=== PATIENT | male | born 1950 | race Caucasian/White ===

== ENCOUNTER 2017-01-05 08:27 | Outpatient (CLI) | payer MEDICARE, BC ==
--- NOTE | ~2017-01-05 | OP ---
PATIENT NAME: ESTELLA HAMPTON MEDICAL RECORD: [id number] :50 LOCATION:D.CAT ADMISSION DATE: SURGEON: YULIYA MALONE MD DATE OF OPERATION: 01/05/2017 PROCEDURES: 1. Left heart catheterization. 2. Selective coronary angiography. 3. Left ventriculogram. INDICATION: Chest pain compatible with angina. PROCEDURE IN DETAIL: After informed consent was obtained and after detailed explanation of risks, benefits as well as alternative therapies, the patient elected to proceed with angiogram and heart catheterization. The right femoral area was prepped and draped in normal sterile fashion. The right femoral artery was cannulated via modified Seldinger technique with placement of 6-Tanzanian sheath. All catheters exchanged through this sheath. FINDINGS: The left ventriculogram was performed in the standard 30-degree INGRAM view, reveals good cardiac wall motion throughout all segments. Overall ejection fraction is 50%. SELECTIVE CORONARY ANGIOGRAPHY: Left main, left anterior descending, left circumflex, and right coronary artery are all smooth-walled vessels with no angiographic evidence of coronary artery disease. OVERALL IMPRESSION: 1. No angiographic evidence of coronary artery disease. 2. Normal left heart pressures. 3. Normal left ventricular systolic function. Chest pain is most likely gastroesophageal reflux disease. No further cardiac workup needs to be ascertained. TRANSINT:[id number] Voice Confirmation ID: [id number] DOCUMENT ID: [id number] YULIYA MALONE MD CC: [id number] DICTATION DATE: 01/05/17 1302 [employer] ESTATE ASSET MANAGER: 01/05/171917 DEP CLI 01/05/17 [facility] [address] [id number]
--- NOTE | ~2017-01-05 | CN ---
PATIENT NAME:ESTELLA RAO MEDICAL RECORD: [id number] : 50 LOCATION:D.CAT ADMIT DATE: ACCOUNT: [id number] CONSULTING PHYSICIAN: YULIYA MALONE MD REFERRING PHYSICIAN: YULIYA MALONE MD DATE OF CONSULTATION: 01/05/2017 ADMITTING DIAGNOSES: 1. Chest pain compatible with angina. 2. Hypertension. 3. Hyperlipidemia. 4. Family history of coronary artery disease. HISTORY OF PRESENT ILLNESS: Mr. Rao presents with chest discomfort lasted approximately 2 hours, a classic anginal squeezing sensation across the anterior left chest. His EKG is with no acute ST-T abnormalities. He is pain free at this time. He has some more episode approximately 2 weeks ago each episode was associated with nausea as well. PHYSICAL EXAMINATION: GENERAL APPEARANCE: Well-nourished, well-developed, appears stated age. Level of distress, comfortable. PSYCHIATRIC: Mental status, alert, normal affect. Orientation, oriented to time, place and person. EYES: Lids and conjunctiva, noninjected. No discharge, no pallor. ENT: Lips, teeth, gums, normal dentition. Oropharynx, no cyanosis, no pallor. NECK: Carotid arteries, bilateral normal upstroke, no bruits, no thrills. JUGULAR VEINS: No jugular venous pressure or distention. CERVICAL LYMPH NODES: Nontender, nonenlarged. THYROID: Not enlarged. Nontender. No nodules. LUNGS: Respiratory effort, unlabored. CHEST: Normal curvature. No thoracic deformity. No chest wall tenderness. Percussion, resonant. Auscultation, clear. No wheezes, no rales, no rhonchi. CARDIOVASCULAR: Precordial exam, nondisplaced. No heaves or pericardial thrills. Rate and rhythm, regular. Heart sounds, normal S1, normal S2. No S3, no gallop, no rub. Systolic murmur, not heard. Diastolic murmur, not heard. EXTREMITIES: No cyanosis, no edema. Peripheral pulses, full and equal in all extremities, except as noted. No bruits appreciated. ABDOMEN: Soft, nondistended. Normal aorta. No bruit. Nontender. No masses. Liver, nontender, no hepatomegaly. Spleen, nontender, no splenomegaly. MUSCULOSKELETAL: No joint tenderness. No joint swelling. No erythema. NEUROLOGICAL: Normal gait, normal strength, normal tone. SKIN: Warm and dry. REVIEW OF SYSTEMS: The patient reports easy bruising but reports no swollen glands. The patient reports no fever, no night sweats, no significant weight gain, no significant weight loss. No significant exercise tolerance. The patient reports no dry eyes, no irritation, no vision change. Patient reports no difficulty hearing and no ear pain. Patient reports no frequent nose bleeds or nose and sinus problems. Patient reports on arm pain on exertion. No shortness of breath while lying down. No history of heart murmur. Patient reports no cough, no wheezing or coughing up blood. Patient reports no abdominal pain, no vomiting. Normal appetite. No diarrhea and not vomiting blood. No nausea and no constipation. Patient reports no incontinence. No difficulty urinating. No hematuria. No increased frequency. Patient reports CONSULT REPORT [id number] ESTELLA RAO no muscle aches. No weakness, no arthralgias, no back pain. No swelling of the extremities. Patient reports no abnormal mole, no jaundice, no rashes. Reports no loss of consciousness. No weakness and no numbness. No seizures, dizziness, or headaches. The patient reports no depression, no sleep disturbance, feeling safe in a relationship and no alcohol abuse. Patient reports on fatigue. Reports no runny nose or sinus pressure. No itching, no hives, and no frequent sneezing. OVERALL IMPRESSION: Chest pain compatible with angina in a patient with multiple cardiac risk factors including hypertension, hyperlipidemia and family history. Most likely, he has hemodynamically significant coronary disease, would proceed with coronary angiography. Further care depends upon findings of the angiography. TRANSINT:[id number] Voice Confirmation ID: [id number] DOCUMENT ID: [id number] YULIYA MALONE MD CC: [id number] DICTATION DATE: 01/05/17 0939 MANAGER DOCUMENTATION: 01/05/17 1718 [facility] [address] [place] [address]
--- NOTE | ~2017-01-05 | HEMODYNAMI ---
PATIENT:ESTELLA HAMPTON MEDICAL RECORD: [id number] : 50 LOCATION:D.CAT ADMISSION DATE: 01/05/17 Generatedon:01/05/201713:07 Patient name: ESTELLA HAMPTON Patient #: [id number] SSN: D OB: 1950 Date of study: 01/05/2017 Page: Of Hemodynamic Procedure Report Patient Data Patient Demographics Procedure consent was obtained First Name: ESTELLA Gender: Male Last Name: MEMO : 1950 Middle Initial: M Age: 66 year(s) Patient #: [id number] Race: Additional ID: [id number] Contact details Address: [address] [place] [address] State: [place] City: [place] Zip code: [address] Past Medical History Allergies Allergen Reaction Date Comments Reported Other allergy 01/05/2017 HYDROCODONE Admission Admission Data Admission Date: 01/05/2017 Admission Time: 8:27 Admit Source: Emergency department Height (in.): 70.5 BSA: 2.21 (m2) Height (cm.): 179.07 BMI: 31.83 (kg/m2) Weight (lbs.): 225 Weight (kg.): 102.06 Lab Results Lab Result Date: 01/05/2017 Lab Result Time: 0:00 Biochemistry Name Units Result Min Max BUN mg/dl 21 --(----)-* 7 18 Creatinine mg/dl 1 --(--*-)-- 0.6 1.3 CBC Name Units Result Min Max Hemoglobin g/dl 14 --(*---)-- 13.5 17.5 Procedure Procedure Types Cath Procedure Diagnostic Procedure [facility] w/Coronaries Miscellaneous Procedures Moderate Sedation up to 15 minutes Procedure Description Procedure Date Procedure Date: 01/05/2017 Procedure Start Time: 12:55 Procedure End Time: 13:06 Procedure Staff Name Function Bryan Jones MD Performing Physician Luisana Howell RN Nurse Fabien Dawn RT Monitor Andres Vieira RT Scrub Procedure Data Cath Procedure Fluoroscopy Diagnostic fluoroscopy Total fluoroscopy Time: 0.7 time: 0.7 min min Diagnostic fluoroscopy Total fluoroscopy dose: 327 dose: 327 mGy mGy Contrast Material Contrast Material Type Amount (ml) Isovue 300 46 Entry Location Entry Primary Successful Side Size Upsize Upsize Entry Closure Succes sful Closure Location (Fr) 1 (Fr) 2 (Fr) Remarks Device Remarks Femoral Right 5 Fr Vascade artery Closure System Estimated blood loss: 10 ml Diagnostic catheters Device Type Used For End Catheter Placement Cordis 5Fr Pigtail Procedure Catheter (MP) Cordis 5Fr JL 4.0 Procedure Catheter (MP) Cordis 5Fr 3DRC Catheter Procedure (MP) Procedure Medications Medication Administration Route Dosage Oxygen NC 2 l/min Heparin Flush Bag added to field 2 bags (1000units/500ml NS) Lidocaine 2% added to field 20 Versed I.V. 1 mg Fentanyl I.V. 50 mcg Versed I.V. 1 mg Fentanyl I.V. 50 mcg Versed I.V. 1 mg Fentanyl I.V. 50 mcg Fentanyl I.V. 50 mcg Hemodynamics Rest BSA: 2.21 (m2) HGB: 14 (g/dl) O2 Consumption: Estimated: 258.59 (ml/min) O2 Cons umption indexed: Estimated:117.01 (ml/min/m) Heart Rate: 72 (bpm) Snapshots Pre Cath Intra NCS Post Cath Vital Signs Time Heart Resp SPO2 NIBP (mmHg) Rhythm Pain Sedation Rate (ipm) (%) Status Level (bpm) 12:37:21 66 14 98 130/77(103) NSR 0 (11) 10(A) , No pain 12:41:37 70 14 98 139/73(100) NSR 0 (11) 10(A) , No pain 12:45:55 63 16 98 132/73(110) NSR 0 (11) 10(A) , No pain 12:50:13 62 16 98 139/66(106) NSR 0 (11) 10(A) , No pain 12:54:29 56 17 97 122/63(92) NSR 0 (11) 10(A) , No pain 12:58:43 63 19 96 117/67(98) NSR 0 (11) 9(A) , No pain 13:02:59 69 16 96 116/61(87) NSR 0 (11) 9(A) , No pain Medications Time Medication Route Dose Verified Delivered Reason Notes Effec tiveness by by 12:40:10 Oxygen NC 2 Bryan Luisana Per l/min Karen Howell RN physician 12:40:17 Heparin Flush added 2 Bryan Careyrey used for Bag to bags Karen Jones MD procedure (1000units/500ml field NS) 12:40:24 Lidocaine 2% added 20ml Bryan Bryan used for to vial Karen Jones MD procedure field 12:48:44 Versed I.V. 1 mg Bryan Luisana for Karen Howell RN sedation 12:48:57 Fentanyl I.V. 50 Bryan Luisana for mcg Karen Howell RN sedation 12:51:58 Versed I.V. 1 mg Bryan Luisana for Karen Howell RN sedation 12:52:01 Fentanyl I.V. 50 Bryan Luisana for mcg Karen Howell RN sedation 12:54:06 Versed I.V. 1 mg Bryan Luisana for Karen Howell RN sedation 12:54:19 Fentanyl I.V. 50 Bryan Luisana for mcg Karen Howell RN sedation 12:56:53 Fentanyl I.V. 50 Bryan Luisana for mcg Karen Howell RN sedation Procedure Log Time Note 12:10:08 Fabien Dawn RT(R) (CV) sent for patient. Start room use. 12:20:09 Time tracking: Regular hours 12:20:14 Plan of Care:Hemodynamics will remain stable., Cardiac rhythm will remain stable., Comfort level will be maintained., Respiratory function will remain adequate., Patient/ family verbilizes understanding of procedure., Procedure tolerated without complication., Recovers from procedure without complications.. 12:30:25 Patient received from ED to CCL 2 Alert and oriented. Tansferred to table in Supine position. 12:30:26 Warm blankets applied, and mendel hugger turned on for patient comfort. 12:30:26 Correct patient and procedure confirmed by team. 12:30:28 Signed procedure consent form obtained from patient. 12:30:29 ECG and BP/O2 sat monitors applied to patient. 12:36:09 Vital chart was started 12:36:10 Baseline sample Acquired. 12:36:13 Rhythm: sinus rhythm 12:36:16 Full Disclosure recording started 12:36:24 H&P Date Dictated: 01/05/2017 ER History on chart.. 12:36:25 Pre-procedure instructions explained to patient. 12:36:27 Pre-op teaching completed and patient verbalized understanding. 12:36:29 Family in waiting room. 12:36:43 Patient NPO since Breakfast. 12:37:23 Patient allergic to Other allergyHYDROCODONE 12:37:27 Is the patient allergic to Iodine/contrast media? No. 12:37:31 Is patient on blood thinner?No 12:37:34 Patient diabetic? No. 12:37:50 ----Pre-sedation anethsthesia assessment.---- 12:37:54 Previous problem with sedation/anesthesia? No ? 12:37:58 Snore? Yes 12:37:59 Sleep apnea? Yes 12:38:01 Deviated septum? No 12:38:05 Opens mouth fully? Yes 12:38:07 Sticks out tongue? Yes 12:38:10 Airway obstruction? No ? 12:38:14 Dentures? No ? 12:40:10 Oxygen 2 l/min NC was administered by Luisana Howell RN; Per physician; 12:40:17 Heparin Flush Bag (1000units/500ml NS) 2 bags added to field was administered by Bryan Jones MD; used for procedure; 12:40:24 Lidocaine 2% 20ml vial added to field was administered by Bryan Jones MD; used for procedure; 12:44:21 Pre procedure: right dorsailis pedis pulse 2+ Normal; easily identifiable; not easily obliterated 12:44:27 Modified Ravin's test Ulnar > 7 seconds. 12:44:38 Patient pain scale 0/10 ?. 12:44:46 IV patent on arrival in right forearm with 0.9% NaCl at [facility]. 12:45:33 Admit Source: Emergency department 12:45:42 Patient Height : 179.07 cm 12:45:45 Patient Weight : 102.06 kg 12:47:53 Lab Result : Creatinine 1 mg/dl 12:47:53 Lab Result : BUN 21 mg/dl 12:47:53 Lab Result : Hemoglobin 14 g/dl 12:48:06 Lab results completed and on chart. 12:48:06 Lab results completed and on chart. 12:48:10 Right groin area was prepped with chlora-prep and draped in sterile fashion 12:48:12 Alarms reviewed by R. N. 12:48:12 Sharps counted by scrub and verified by R.N. 12:48:14 Physician paged 12:48:18 Physician arrived 12:48:20 --------ALL STOP TIME OUT------ 12:48:22 Final Timeout: patient, procedure, and site verified with staff and physician. All members of the team are in agreement. 12:48:25 Right groin site verified by team. 12:48:30 Physical assessment completed. ASA score P 2 - A patient with mild systemic disease as per Bryan Jones MD. 12:48:35 Sedation plan: IV Moderate Sedation Versed, Fentanyl 12:48:44 Versed 1 mg I.V. was administered by Luisana Howell RN; for sedation; 12:48:57 Fentanyl 50 mcg I.V. was administered by Luisana Howell RN; for sedation; 12:49:36 Diagnostic Cath Status : Elective 12:50:58 Zero performed for pressure channel P1 12:51:12 Zero performed for pressure channel P1 12:51:53 Use device set Femoral Dx 12:51:57 Acist Syringe opened to sterile field. 12:51:58 Versed 1 mg I.V. was administered by Luisana Howell RN; for sedation; 12:51:58 Bag Decanter opened to sterile field. 12:51:58 Medline Cath Pack opened to sterile field. 12:52:00 Terumo 5Fr [place] Sheath opened to sterile field. 12:52:00 St Guero 260cm J .035 wire opened to sterile field. 12:52:01 Fentanyl 50 mcg I.V. was administered by Luisana Howell RN; for sedation; 12:52:01 Acist Hand Control opened to sterile field. 12:52:02 Acist Manifold opened to sterile field. 12:52:03 Diagnostic Infinity 5Fr Multipack catheter opened to sterile field. 12:52:04 Tegaderm 4 x 4 opened to sterile field. 12:54:06 Versed 1 mg I.V. was administered by Luisana Howell RN; for sedation; 12:54:19 Fentanyl 50 mcg I.V. was administered by Luisana Howell RN; for sedation; 12:55:03 Procedure started. 12:55:07 Local anesthetic to right femoral artery with Lidocaine 2% by Bryan Jones MD.INITIAL ACCESS ONLY 12:56:13 A 5 Fr sheath was inserted into the Right Femoral artery 12:56:47 A Cordis 5Fr Pigtail Catheter (MP) was advanced over the wire and used for Procedure. 12:56:51 LV gram done using INGRAM 12:56:53 Fentanyl 50 mcg I.V. was administered by Luisana Howell RN; for sedation; 12:56:55 LV Function : Normal 12:57:01 EF : 50 % 12:57:04 Catheter removed. 12:57:09 A Cordis 5Fr JL 4.0 Catheter (MP) was advanced over the wire and used for Procedure. 12:57:33 LCA angiography performed. 12:58:06 Catheter removed. 12:58:23 A Cordis 5Fr 3DRC Catheter (MP) was advanced over the wire and used for Procedure. 12:59:12 RCA angiography performed. 12:59:19 Catheter removed. 13:00:21 Vascade 5Fr Closure Device opened to sterile field. 13:00:47 Sheath removed intact; hemostasis achieved with Vascade Closure System to the Right Femoral artery. 13:01:36 Procedure ended.(Physican Out) 13:01:59 Fluoroscopy time 00.70 minutes. 13:02:44 Fluoroscopy dose: 327 mGy 13:02:44 Flurop Dose total: 327 13:02:52 Contrast amount:Isovue 300 46ml. 13:02:54 Sharps counted by scrub and verified by R.N. 13:03:47 Insertion/operative site no bleeding no hematoma. 13:03:52 Post-op/insertion site Right Femoral artery dressed using a 4 x 4 and Tegaderm. 13:04:28 Post right femoral artery:stable 13:04:31 Post Procedure Pulses reassessed and unchanged 13:05:02 Post-procedure physical assessment completed. ASA score P 2 - A patient with mild systemic disease as per Bryan Jones MD. 13:05:09 Post procedure rhythm: unchanged. 13:05:12 Estimated blood loss: 10 ml 13:05:16 Post procedure instruction explained to patient.Patient verbalizes understanding. 13:05:18 Patient needs reinforcement of post procedure teaching. 13:05:22 Procedure and supply charges have been captured, reviewed, submitted and are correct. 13:05:26 Vital chart was stopped 13:05:28 See physician's report for complete and final results. 13:05:31 Report given to Pre/Post Procedure Room. 13:05:39 Patient transfered to Pre/Post Procedure Room with Stretcher. 13:06:25 Procedure ended. 13:06:25 Full Disclosure recording stopped 13:06:35 End room use (Document Last) Device Usage Item Name Manufacture Quantity Catalog Number Hospital Part Current Minima l Lot# / Charge Number Stock Stock Serial# Code Acist Acist 1 [id number] 217021 [id number] 20 Syringe Medical [employer] Inc Bag Microtek 1 [id number] 88520 994605 5 Decanter Medical Inc. Medline Cardinal 1 [id number] 653899 58620 925615 5 Cath Pack Health Terumo 5Fr Terumo 1 [id number] 806026 990468 223699 [address] St Guero 1 990670 762335 604058 572490 30 260cm J .035 wire Acist Hand Acist 1 26793 550517 155633 338068 5 Control Medical Systems Inc Acist Acist 1 06936 570927 828732 465115 5 Manifold Medical Systems Inc Diagnostic Cardinal 1 [id number] [id number] 37922 804103 30 Infinity Health 5Fr Multipack catheter Tegaderm 4 3M 1 1626W 015384 471769 802079 5 x 4 Cordis 5Fr Cardinal 1 794992 5 Pigtail Health Catheter (MP) Cordis 5Fr Cardinal 1 400885 5 JL 4.0 Health Catheter (MP) Cordis 5Fr Cardinal 1 397436 5 3DRC Health Catheter (MP) Vascade Cardiva 1 [id number] 783442 56795 278455 10 5Fr Medical, Closure Inc. Device Signature Audit [place] Stage Time Signature Unsigned Intra-Procedure 01/05/2017 Fabien Dawn 1:07:25 PM RT(R) (CV) Signatures Monitor : Fabien Dawn RT Signature : Date : Time : [id number] [place] [address]
[2017-01-05 09:12] LABS: BASOPHILS 0.1 % (0-2); EOSINOPHILS 0.2 % (0-7); HEMATOCRIT 41.8 % (42.0-54.0); IMMATURE GRANULOCYTES 0.2 % (0-5); LYMPHOCYTES 6.8 % (15-50); MCH 30.5 pg (26.0-34.0); MCHC 33.5 g/dL (31.0-37.0); MCV 91.1 fL (80.0-100.0); MONOCYTES 0.6 % (2-11); NEUTROPHILS 92.1 % (40-80); PLATELET COUNT 183 10x3/uL (130-400); RBC 4.59 10x6/uL (4.20-6.10); RDW 13.5 % (11.5-14.5); WBC 10.3 10x3/uL (4.8-10.8)
[2017-01-05 09:28] LABS: ALBUMIN 4.1 g/dL (3.4-5.0); ALKALINE PHOSPHATASE 42 U/L (46-116); ALT (SGPT) 32 U/L (10-68); CALC OSMOLALITY 287 mosm/kg (275-300); CALCIUM 9.5 mg/dL (8.5-10.1); CARBON DIOXIDE 29.3 mmol/L (21.0-32.0); CHLORIDE - SERUM 106 mmol/L (98-107); CREATININE - SERUM 1.2 mg/dL (0.6-1.3); GLUCOSE 99 mg/dL (74-106); POTASSIUM - SERUM 3.7 mmol/L (3.5-5.1); PROTEIN - SERUM 7.5 g/dL (6.4-8.2); SODIUM 143 mmol/L (136-145); UREA NITROGEN 21 mg/dL (7-18); eGFR NON AFRICAN AMERICAN 64 mL/min (90-120)
[2017-01-05 09:40] LABS: CKMB 3.8 U/L (0.0-3.6); CREATINE KINASE 266 UL (21-232); PRO BNP 16 pg/mL (0-125)
[2017-01-05 09:41] LABS: TROPONIN-I < 0.017 ng/mL (0.000-0.060)
--- NOTE | 2017-01-05 13:39 | NUR ---
1335 AWAKE, LYING FLAT, ALL VITALS WNL. R GROIN 5F VASCADE C/D/I WITH NO HEMATOMA OR BLEEDING. PULSES PALP X 4. AT BEDSIDE. SIPPING WATER WITH NO NAUSEA.
--- NOTE | 2017-01-05 17:58 | NUR ---
1510-IV D'C WITH CATH TIP INTACT, WRITTEN AND VERBAL INSTRUCTIONS GIVEN TO PT AND , VERBAL UNDERSTANDING NOTED
== END 2017-01-05 15:20 | disposition home or self-care (01) ==
LOC: D.ER 08:27 → D.CATH 08:27 → EDSTATUS 10:45 → D.CATH 15:20
PROVIDERS: Emergency Medicine
DX: I20.9 Angina pectoris, unspecified (principal); I10 Essential (primary) hypertension; E78.5 Hyperlipidemia, unspecified; Z82.49 Family history of ischemic heart disease and other diseases of the circulatory system; Z01.812 Encounter for preprocedural laboratory examination

== ENCOUNTER → 2017-03-08 09:50 | Outpatient (CLI) | payer MEDICARE, BC | END | disposition home or self-care (01) | LOC: D.RAD 09:45 | DX: J18.9 Pneumonia, unspecified organism (principal) ==

== ENCOUNTER → 2017-03-18 12:32 | Outpatient (CLI) | payer MEDICARE, BC | END | disposition home or self-care (01) | LOC: D.CT 12:32 | DX: J18.1 Lobar pneumonia, unspecified organism (principal) ==

== ENCOUNTER → 2017-03-19 14:55 | Outpatient (CLI) | payer MEDICARE, BC | END | disposition home or self-care (01) | LOC: D.CT 14:30 | DX: K76.9 Liver disease, unspecified (principal) ==

== ENCOUNTER → 2017-09-20 11:12 | Outpatient (CLI) | payer MEDICARE, BC | END | disposition home or self-care (01) | LOC: D.RAD 11:12 | DX: M53.3 Sacrococcygeal disorders, not elsewhere classified (principal) ==

== ENCOUNTER → 2018-05-25 09:40 | Outpatient (CLI) | payer MEDICARE, BC | END | disposition home or self-care (01) | LOC: D.CT 09:40 | DX: J84.10 Pulmonary fibrosis, unspecified (principal) ==